=== PATIENT | male | born 1995 | race Hispanic/Latino ===

== ENCOUNTER 2024-04-03 07:01 | Day surgery (SDC) | payer BC ==
[2024-04-02 11:19] VITALS: BMI 20.5
[2024-04-03] MEDS ORDERED: Oxymetazoline HCl 0.05% (30 ML BOT) ONE ×2 (07:37→08:51)
[2024-04-03] MEDS ORDERED: Rocuronium Bromide 10 MG/ML (10ML VIAL) ONE (08:26)
[2024-04-03] MEDS ORDERED: Ondansetron PF 4 MG/2 ML Vial ONE (08:26)
[2024-04-03] MEDS ORDERED: Dexamethasone 4 mg/ml Vial ONE (08:26)
[2024-04-03] MEDS ORDERED: fentaNYL PF 100 MCG/2 ML SYRINGE ONE (08:26)
[2024-04-03] MEDS ORDERED: Lidocaine 1% PF 5 ML VIAL ONE (08:26)
[2024-04-03] MEDS ORDERED: SUGAMMADEX SODIUM 200 MG/2 ML VIAL ONE (08:27)
[2024-04-03] MEDS ORDERED: PROPOFOL 40 ML ONE (08:27)
[2024-04-03] MEDS ORDERED: EPINEPHrine 1 MG/ML VIAL ONE (08:51)
[2024-04-03] MEDS ORDERED: Bacitracin Zinc Ointment 30 gm TUBE ONE (08:51)
[2024-04-03] MEDS ORDERED: Lidocaine 1% (PF) 30 ML VIAL ONE (08:52)
[2024-04-03] MEDS ORDERED: HYDROcodone/Acetaminophen 5/325 mg Tablet ONE (11:04)
== END 2024-04-03 11:52 | disposition home or self-care (01) ==
LOC: SDC 07:01
PROVIDERS: ATTEND Specialist
PROC: 09BM8ZZ Excision of Nasal Septum, Via Natural or Artificial Opening Endoscopic (ICD-10-PCS; principal; 2024-04-03)
PROC: 09TL8ZZ Resection of Nasal Turbinate, Via Natural or Artificial Opening Endoscopic (ICD-10-PCS; principal; 2024-04-03)
DX: J34.2 Deviated nasal septum (principal); J34.3 Hypertrophy of nasal turbinates; J45.909 Unspecified asthma, uncomplicated; Z79.899 Other long term (current) drug therapy
CPT/HCPCS: J0171; J1100; J2001; J2405; J2704